=== PATIENT | female | born 1960 | race Caucasian/White ===

== ENCOUNTER 2024-05-01 05:43 | Emergency (ER) | payer OTHER ==
[~2024-05-01] VITALS: Ht 160 cm; Wt 69.0 kg
[2024-05-01] MEDS ORDERED: PREDNISOLONE ACE5 ML OPTH (06:08)
[2024-05-01 06:09] LABS: BASOPHILS 0.6 % (0-2); HEMATOCRIT 43.6 % (35.0-50.0); LYMPHOCYTES 25.8 % (24-44); MCH 36.7 (27-36); MCHC 34.5 g/dl (30-36); MCV 106.4 fl (81-99); MONOCYTES 8.6 % (0-12); PLATELET COUNT 468 K/uL (140-440); RDW 16.6 (10.5-15.0)
[2024-05-01] MEDS ORDERED: LACTATED RINGER'S 1,000 ML IV ONE (06:30)
[2024-05-01] MEDS ORDERED: ondansetron HCL 4 MG/2 ML VIAL IV ONE (06:30)
[2024-05-01 06:33] LABS: ALBUMIN 4.3 g/dL (3.4-5.0); ALBUMIN/GLOBULIN RATIO 1.02 (1.1-2.4); ANION GAP 15.6 (7-21); BILIRUBIN, TOTAL 0.6 ng/dL (0.2-1.0); BUN/CREATININE RATIO 8.33 (6.0-28.6); CALCIUM 10.2 mg/dL (8.5-10.1); CREATININE, SERUM 0.84 mg/dL (0.55-1.02); POTASSIUM 3.6 mmol/L (3.5-5.1); PROTEIN, TOTAL 8.5 g/dL (6.4-8.2)
[2024-05-01] MEDS ORDERED: KETOROLAC TROMETHAMINE 15 MG/ML VIAL IV ONE (07:15)
[2024-05-01 07:22] LABS: BILIRUBIN, URINE NEGATIVE (negative); BLOOD/HGB, URINE NEGATIVE (Negative); KETONE, URINE NEGATIVE (Negative); LEUK ESTERASE, URINE NEGATIVE (negative); NITRITE, URINE NEGATIVE (negative)
[2024-05-01 07:26] LABS: MARIJUANA (THC), UR NEGATIVE (NEGATIVE)
[2024-05-01 07:27] LABS: AMPHETAMINES, UR NEGATIVE (NEGATIVE); BARBITURATES, UR NEGATIVE (NEGATIVE); BENZODIAZEPINES, UR NEGATIVE (NEGATIVE); BUPRENORPHINE,UR NEGATIVE (NEGATIVE); COCAINE, UR NEGATIVE (NEGATIVE); MDMA, UR NEGATIVE (NEGATIVE); METHADONE, UR NEGATIVE (NEGATIVE); METHAMPHETAMINE, UR NEGATIVE (NEGATIVE); OPIATES, UR NEGATIVE (NEGATIVE); OXYCODONE, UR NEGATIVE (NEGATIVE); PHENCYCLIDINE, UR NEGATIVE (NEGATIVE); TRICYCLIC ANTIDEPRESSANT, UR NEGATIVE (NEGATIVE)
[2024-05-01 08:13] VITALS: BP 141/69
--- NOTE | 2024-05-01 22:57 | EKG ---
[facility] [address] [facility] [place] [address] Signed Normal sinus rhythm Left anterior fascicular block Abnormal ECG No previous ECGs available Confirmed by Haile Fernandez MD () on 05/01/2024 10:57:33 PM Electronically Signed By: HAILE FERNANDEZ MD 05/01/24 2257 PATIENT NAME: LAI REYES Electrocardiogram DATE OF : 60 PHYSICIAN: HAILE FERNANDEZ MD REPORT #: [id number] REPORT IS CONFIDENTIAL AND NOT TO BE RELEASED WITHOUT AUTHORIZATION
== END 2024-05-01 08:13 | disposition home or self-care (01) ==
LOC: ED 05:43
PROVIDERS: Internal Medicine
DX: S09.90XA Unspecified injury of head, initial encounter (principal); W18.30XA Fall on same level, unspecified, initial encounter; E86.0 Dehydration; G43.909 Migraine, unspecified, not intractable, without status migrainosus; R55 Syncope and collapse; Z79.899 Other long term (current) drug therapy
CPT/HCPCS: 36415; 70450; 73560; 80053; 80307; 81003; 83735; 84484; 85025; 93005; 93010; 96374; 99284-25; G0480; J1885; J7121

== ENCOUNTER 2024-12-13 21:26 | Emergency (ER) | payer OTHER ==
[~2024-12-13] VITALS: Ht 160 cm; Wt 73.1 kg
[~2024-12-13 21:26] MED LIST: PREDNISOLONE ACE5 ML OPTH
[2024-12-13 22:01] LABS: BASOPHILS 0.4 % (0.1-1.2); EOSINOPHILS 3.1 % (0.7-5.8); LYMPHOCYTES 49.7 % (19.3-51.7); MCH 35.0 PG (25.6-32.2); MCHC 34.1 g/dL (32.2-35.5); MCV 102.6 fL (79.4-94.8); MONOCYTES 8.8 % (4.7-12.5); NEUTROPHILS 37.7 % (34.0-71.1); RBC 3.86 M/uL (3.93-5.22)
[2024-12-13 22:17] LABS: ALT (SGPT) 17.0 U/L (14-59); AST (SGOT) 13.0 U/L (15-37); GLOMERULAR FILTRATION RATE,EST 81.0 mL/min (>60); PROTEIN, TOTAL 7.5 g/dL (6.4-8.2); UREA NITROGEN 9.0 mg/dL (7-18)
[2024-12-13 22:20] LABS: INR 0.92 (0.80-1.30); PROTIME 11.7 Sec (11.2-14.2)
[2024-12-14 00:36] VITALS: BP 126/65
--- NOTE | 2024-12-14 12:51 | EKG ---
[facility] [address] [facility] [place] [address] Signed Normal sinus rhythm Left anterior fascicular block Abnormal ECG When compared with ECG of 01-MAY-2024 05:58, No significant change was found Confirmed by Haile Fernandez MD () on 12/14/2024 12:51:39 PM Electronically Signed By: HAILE FERNANDEZ MD 12/14/24 1251 PATIENT NAME: LAI REYES AMPARO Electrocardiogram DATE OF : 60 PHYSICIAN: HAILE FERNANDEZ MD REPORT #: [id number] REPORT IS CONFIDENTIAL AND NOT TO BE RELEASED WITHOUT AUTHORIZATION
== END 2024-12-14 00:38 | disposition home or self-care (01) ==
LOC: ED 21:26
PROVIDERS: Family Medicine
DX: H53.8 Other visual disturbances (principal); Z79.899 Other long term (current) drug therapy
CPT/HCPCS: 36415; 70450; 70496; 70498; 80053; 85025; 85610; 93005; 93010; 99284-25; Q9967